=== PATIENT | male | born 1950 | race Caucasian/White ===

== ENCOUNTER → 2019-11-22 | Outpatient (CLI) | payer OTHER | END | disposition home or self-care (01) | LOC: LAB SHORT 12:04 → PLD 12:04 | DX: L82.1 Other seborrheic keratosis (principal) | CPT/HCPCS: 88305 ==

== ENCOUNTER 2022-06-23 08:34 | Day surgery (SDC) | payer OTHER ==
[~2022-06-23] VITALS: Ht 177.8 cm; Wt 73.9 kg
[2022-06-23] MEDS ORDERED: FISH OIL 1,2001 EAC7 (08:47)
--- NOTE | 2022-06-23 09:18 | NUR ---
06/23/22 0918 Denice Stanford TWO ATTEMPTS AT IV. FIRST ATTEMPT UNABLE TO ADVANCE CATHERTER IN R HAND VEIN. SECOND ATTEMP IN L HAND SUCESSFUL.
== END 2022-06-23 11:11 | disposition home or self-care (01) ==
LOC: ORSCSDS 08:34
PROVIDERS: Student in an Organized Health Care Education/Training Program
PROC: 0DBL8ZX Excision of Transverse Colon, Via Natural or Artificial Opening Endoscopic, Diagnostic (ICD-10-PCS; principal; 2022-06-23 09:45)
PROC: 0DBK8ZX Excision of Ascending Colon, Via Natural or Artificial Opening Endoscopic, Diagnostic (ICD-10-PCS; principal; 2022-06-23 09:45)
DX: Z12.11 Encounter for screening for malignant neoplasm of colon (principal); D12.3 Benign neoplasm of transverse colon
CPT/HCPCS: 88305; J2704; J7120